=== PATIENT | female | born 1965 | race Caucasian/White ===

== ENCOUNTER 2020-04-28 13:29 | Emergency (ER) | payer OTHER, SELFPAY ==
[2020-04-28 13:30] VITALS: BP 112/86; PULSE 70; RESP 18; TEMP 36.4; BMI 42.4
--- NOTE | 2020-04-28 14:05 | ED.DCSUM_ITS ---
- ER Visit Summary Date of Service: 04/28/20 Chief Complaint: [Injury to left ankle] History of Present Illness: The patient is a 54 F [ presents to the emerge with injury to her left ankle that she sustained about an hour and a half ago. Patient states that she was getting out of her vehicle when she slipped in the mud and twisted the ankle. Patient is able to bear some weight but painful. She denies any other injuries.] Physical Examination: [HEENT-PERRLA, EOMI. Cranial nerves II through XII grossly intact. TMs clear. Mucous membranes moist. No adenopathy. Cardiovascular-regular rate and rhythm without murmur or ectopy Lungs-clear to auscultation, chest wall stable without crepitus or subcu emphysema Abdomen-normoactive bowel sounds, soft, nontender, no rebound or rigidity, no peritoneal signs. Extremities-intact ?4, normal range of motion, normal pulses. Left ankle- patient has diffuse soft tissue swelling over the lateral malleolus with tenderness to palpation. No pain at the proximal fibular head or base of the fifth metatarsal. She is neurovascular intact distally.] Test Results: [3 view x-ray of the left ankle obtained read by myself as distal fibula fracture minimally displaced. Radiology in agreement.] Emergency Department Course and Treatment: [Patient was placed in a posterior splint and given crutches] Treatment Plan: [Patient will be referred to orthopedics for follow-up. Patient given a prescription for Percocet for pain.] Disposition: [Discharged home in stable condition] Impression: [Left distal fibula fracture] This note was generated with [employer] dictation software. It may contain incorrect words, spelling, and punctuation that were not noted in review of the chart prior to signing
--- NOTE | 2020-04-28 14:08 | RAD_ITS ---
STUDY: X-RAY - LEFT ANKLE REASON FOR EXAM: Female, 54 years old. LEFT LATERAL ANKLE PAIN AND SWELLING S/P FALL TECHNIQUE: 3 view(s) of the ankle. COMPARISON: None. FINDINGS: Normal visualized distal tibia and fibula. Nondisplaced oblique fracture of the lateral malleolus. Mild asymmetry of the ankle mortise. Plantar spur. Well-defined small ossicles are seen overlying the posterior talus most likely from prior injury. The visualized subtalar, talonavicular, calcaneocuboid and tarsal articulations are normal. Diffuse lateral soft tissue swelling RAD/Ankle min 3 Views IMPRESSION: Acute nondisplaced oblique fracture of the lateral malleolus with diffuse lateral soft tissue swelling. Mild asymmetry of the ankle mortise. Electronically Signed: Eliel Mitchell, at 14:18 EST , Service support ,
--- NOTE | 2020-04-28 14:41 | ED.DEP ---
ED Disposition - Plan for ED Patient: Instructions: ED Ankle Fracture, Distal Fibula Prescriptions: Oxycodone HCl/Acetaminophen [Percocet 5/325] 1 tab PO Q6H PRN PRN 5 Days #20 tab PRN Reason: Pain Score 6-10 Prescription Printed Referrals: Kev Maria MD [STAFF PHYSICIAN] - 3-5 Days
[2020-04-28 15:30] VITALS: PULSE 81; RESP 16; O2SAT 100
--- NOTE | 2020-04-28 15:30 | ED.RN ---
THIS NURSE REVIEWED D/C INSTRUCTIONS WITH PT. PT VERBALIZED UNDERSTANDING OF INSTRUCTIONS. PT ASSISTED TO VEHICLE VIA W/C. PT DENIES FURTHER NEEDS OR QUESTIONS.
== END 2020-04-28 15:31 | disposition home or self-care (01) ==
LOC: ED 14:33
PROVIDERS: Emergency Provider Emergency Medicine; PCP Family Medicine
DX: S82.65XA Nondisplaced fracture of lateral malleolus of left fibula, initial encounter for closed fracture (principal); V48.4XXA Person boarding or alighting a car injured in noncollision transport accident, initial encounter; Y93.9 Activity, unspecified; Y92.818 Other transport vehicle as the place of occurrence of the external cause; Y99.9 Unspecified external cause status; I10 Essential (primary) hypertension
CPT/HCPCS: 29515; 73610; 99283

== ENCOUNTER 2021-02-13 07:30 | Inpatient (IN) | payer OTHER, SELFPAY ==
[2021-02-13 07:30] VITALS: BP 155/74; PULSE 78; RESP 16; TEMP 35.7; O2SAT 100; BMI 40.4
--- NOTE | 2021-02-13 07:53 | US_ITS ---
STUDY: ABDOMINAL ULTRASOUND - RIGHT UPPER QUADRANT REASON FOR VISIT: Female, 55 years old abdominal pain. TECHNIQUE: Ultrasound evaluation of the right upper quadrant was performed with real-time and static arreola-scale imaging. TECHNICAL QUALITY: Limited. Examination limited due to obesity. COMPARISON: None. FINDINGS: Liver: The liver measures 16.8 cm. There is increased echogenicity consistent with fatty infiltration. The bile ducts are within normal limits. There is hepatic color flow. The direction of portal flow is hepatopetal. There is no demonstrated mass lesion. Gallbladder: Normal distended gallbladder. The gallbladder wall measures 2.7 mm. There is a positive sonographic Boyer''s sign. There is mild degree of pericholecystic fluid. Sludge is seen in the gallbladder lumen. Common Bile Duct (C.B.D.): The common bile duct measures 5.9 mm. Pancreas: Normal size of the head, body and tail of the pancreas. There is increased echogenicity of the pancreas. There is no demonstrated pancreatic mass or cyst. Right Kidney: Normal size of the right kidney. The right kidney measures 10.5 cm x 5.3 cm x 4.5 cm. Normal renal cortex. The right cortex measures 1.5 cm. There is no demonstrated renal mass or cyst. There is no right hydronephrosis. US/Gallbladder IMPRESSION: Fatty infiltration of the liver. Small amount of sludge is seen within the gallbladder lumen. Positive Boyer''s sign. Tiny amount of pericholecystic fluid. Correlation with nuclear medicine hepatobiliary scan is recommended. Electronically Signed: Eliel Mitchell MD at 9:43 EDT , Service support ,
--- NOTE | 2021-02-13 07:53 | EDS_ITS ---
HPI HPI - GI History of Present Illness Chief Complaint: Abd Pain Detail of Chief Complaint: Abdominal pain that started 3 days ago Informant: patient Abdominal Pain/Flank Pain Current Severity: 10/21 Narrative Narrative: Patient presents to the emergency department with complaint of abdominal pain that started 3 days ago. Initially the pain was right upper quadrant and lasted about 4 5 hours and then seemed to resolve. She did not have any discomfort yesterday but developed discomfort again last evening. Patient had some GERD symptoms so she took some antiacid medicine and seemed to help her discomfort. Currently rates her pain a 7 out of 10. Food does not seem to affect the pain. She has had no fever. She denies urinary symptoms. She denies chest pain or shortness of breath. She denies any change in stool pattern or color. She denies blood in her stool or black tarry stool. Prior similar symptoms: Yes PFSH PFSH Allergy/AdvReac Type Severity Reaction Status Date / Time erythromycin base Allergy Nausea/Vom/ Verified 02/13/21 07:33 Diarrhea Social History (Updated 12/29/18 @ 15:12 by Anupam WADE, MAURO) Smoking Status: Never smoker ROS ROS ED Constitutional Constitutional ED: Reports systems reviewed and no addt'l complaints, except as documented; Denies body ache(s), change in weight or chills Eyes Eyes: Denies acute decrease in peripheral vision, change in vision, double vision or loss of vision ENT ENT ED: Reports none; Denies ear pain, lip swelling, loss taste/smell, neck pain, otalgia or sore throat Cardiovascular Cardiovascular: Reports none; Denies abdominal pain, chest pain with activity, leg edema, lightheadedness, palpitations, rapid heart rate or syncope Respiratory/Chest Respiratory/Chest: Reports none; Denies change in mental status, dry cough, dyspnea, hemoptysis, shortness of breath at rest or shortness of breath with exertion Gastrointestinal Gastrointestinal: Reports none and abdominal pain; Denies change in stool character, diarrhea, hematemesis, hematochezia, melena, rectal bleeding or vomiting Genitourinary Genitourinary ED: Reports none; Denies abdominal discomfort, anuria, dysuria, genital pain or polyuria Musculoskeletal Musculoskeletal: Reports none; Denies arthralgias, back pain, difficulty walking, extremity pain, muscle weakness or myalgias Integumentary Reports none; Denies abscess or rash Neurologic Neurologic: Reports none; Denies abnormal gait, confusion, focal weakness, frequent falls, headache(s), loss of vision, numbness, paresthesias, radicular pain, vertigo or weakness Psychiatric Psychiatric: Reports systems reviewed and no addt'l complaints, except as documented and none; Denies behavioral changes, confusion, difficulty concentrating, hallucinations, suicidal ideation, tactile hallucinations or visual hallucinations Endocrine Endocrinology: Denies none, cold intolerance, excessive sweating, fatigue or heat intolerance Hematologic/Lymphatic Hematologic/Lymphatic: Reports none; Denies anemia, easy bleeding or easy bruising Allergic/Immunologic Allergic/Immunologic ED: Denies as per HPI, none, lip swelling, mouth swelling, throat swelling, tongue swelling or hives EXAM Physical Exam Const Vital Signs: 02/13/21 07:30 02/13/21 10:00 Temperature 96.3 F L Temperature Source Temporal Pulse Rate 78 67 Respiratory Rate 16 Blood Pressure 155/74 H 149/68 H Blood Pressure Mean 101 95 Pulse Ox 100 Oxygen Delivery Method Room Air Positive well nourished and well developed General Appearance ED: well developed and NAD HEENT Reports TM's clear and moist mucous membranes normocephalic and atraumatic; Negative for trauma or tenderness Tympanic Membrane ED: Yes TM's clear Eyes PERRL and EOMs intact bilaterally General Eye ED: Negative for pale conjunctiva or scleral icterus Neck no lymphadenopathy, supple and no JVD General: Negative for tenderness Chest Wall inspection of chest normal and palpation of chest normal Chest: Negative for tenderness Resp normal respiratory effort and clear to auscultation bilaterally Effort and Inspection: Negative for respiratory distress or pain with movement Auscultation: Negative for rhonchi, wheezes or diminished lung sounds Cardio regular rate, regular rhythm, S1 normal heart sound, S2 normal heart sound and no murmurs Peripheral Pulses: pulses 2+ throughout GI normal to inspection, nondistended, normoactive bowel sounds, soft to palpation, non-distended and no masses GI Narrative: Patient has tenderness to palpation over the right upper quadrant with guarding. Positive Boyer sign. There is no rebound, rigidity, or peritoneal signs. Back/Spine no CVA tenderness and no thoracic nor lumbar tenderness Extremity normal to inspection General Extremety ED: Negative for edema General Extremity: Negative for edema Neuro oriented x3, CN's II-XII intact bilaterally, no sensory deficits noted and gait normal Sensorium / Orientation: awake, alert, oriented to person, oriented to place and oriented to time Motor Exam: strength 5/5 throughout and strength abnormal Psych mental status grossly normal Skin no rashes or lesions noted and no wounds MDM MDM MDM Narrative Medical decision making narrative: IV line established on arrival. Patient initially did not anything for pain as she wanted to be able to drive home if needed. Patient was noted to have an elevated white blood cell count and gallbladder sludge with some pericholecystic fluid and a positive Boyer sign. Clinically I suspect she likely has cholecystitis. Patient's pain became more severe and had to be medicated with Dilaudid and Zofran. I discussed case with surgeon on-call who will evaluate patient for admission for possible cholecystectomy. I was asked to start patient on Zosyn and order a Covid test which will be done. Lab Data Attestation: I reviewed the patient's lab results. Labs: Laboratory Results - last 24 hr 02/13/21 02/13/21 02/13/21 07:50 07:50 07:50 WBC 14.1 H RBC 4.40 Hgb 14.2 Hct 42.6 MCV 96.8 MCH 32.3 H MCHC 33.3 RDW Std Deviation 44.9 H RDW Coeff of Sergo 12.6 Plt Count 346 MPV 9.6 Immature Gran % (Auto) 0.400 Neut % (Auto) 80.0 H Lymph % (Auto) 10.3 L [place] % (Auto) 8.4 Eos % (Auto) 0.6 Baso % (Auto) 0.3 Absolute Neuts (auto) 11.3 H Absolute Lymphs (auto) 1.46 Nucleated RBC % 0 Sodium 136 Potassium 4.1 Chloride 107 Carbon Dioxide 26.0 Anion Gap 3 L BUN 11 Creatinine 0.75 Estim Creat Clear Calc 118.52 Est GFR (MDRD) Af Amer 102 Est GFR (MDRD) Non-Af 84 BUN/Creatinine Ratio 14.6 Glucose 159 H Lactic Acid Calcium 9.1 Total Bilirubin 0.50 AST 20 ALT 34 Alkaline Phosphatase 82 Total Protein 7.6 Albumin 3.4 Globulin 4.2 Albumin/Globulin Ratio 0.8 L Lipase 126 Urine Color Yellow Urine Clarity Clear Urine pH 7.0 Ur Specific [place] 1.015 Urine Protein 15 H Urine Glucose (UA) Normal Urine Ketones Negative Urine Occult Blood 25 H Urine Nitrite Negative Urine Bilirubin Negative Urine Urobilinogen Normal Ur Leukocyte Esterase 500 H Urine RBC 0 SEEN Urine WBC 10-25 SEEN Ur Squamous Epith Cells 0 SEEN Urine Bacteria 1+ Urine Mucus 0 SEEN 02/13/21 08:00 WBC RBC Hgb Hct MCV MCH MCHC RDW Std Deviation RDW Coeff of Sergo Plt Count MPV Immature Gran % (Auto) Neut % (Auto) Lymph % (Auto) [place] % (Auto) Eos % (Auto) Baso % (Auto) Absolute Neuts (auto) Absolute Lymphs (auto) Nucleated RBC % Sodium Potassium Chloride Carbon Dioxide Anion Gap BUN Creatinine Estim Creat Clear Calc Est GFR (MDRD) Af Amer Est GFR (MDRD) Non-Af BUN/Creatinine Ratio Glucose Lactic Acid 1.3 Calcium Total Bilirubin AST ALT Alkaline Phosphatase Total Protein Albumin Globulin Albumin/Globulin Ratio Lipase Urine Color Urine Clarity Urine pH Ur Specific [place] Urine Protein Urine Glucose (UA) Urine Ketones Urine Occult Blood Urine Nitrite Urine Bilirubin Urine Urobilinogen Ur Leukocyte Esterase Urine RBC Urine WBC Ur Squamous Epith Cells Urine Bacteria Urine Mucus Radiography Diagnostic Testing: Clinical Impression(s) from Imaging Studies Gallbladder Ultrasound 02/13/21 07:53 IMPRESSION: Fatty infiltration of the liver. Small amount of sludge is seen within the gallbladder lumen. Positive Boyer''s sign. Tiny amount of pericholecystic fluid. Correlation with nuclear medicine hepatobiliary scan is recommended. Electronically Signed: Eliel Mitchell MD at 9:43 EDT , Service support , Discharge Plan Triage Chief Complaint: Abd Pain ED Provider: Trisha Soliman Dx/Rx/DC Orders Clinical Impression: Abdominal pain, Acute cholecystitis Primary Care Provider: Karri Esquivel Referrals: Karri Esquivel MD [Primary Care Provider] - Disposition Disposition: Acute Care Hospital [facility]
[2021-02-13 08:03] LABS: Absolute Lymphocyte Count 1.46 X10^3/uL (0.83-4.51); Absolute Neutrophil Count 11.3 X10^3/uL (2.0-7.7); Basophil# 0.04 X10^3/uL; Basophil% 0.3 % (0-1); Eosinophil# 0.09 X10^3/uL; Eosinophils% 0.6 % (0-5); Hematocrit 42.6 % (37-47); Hemoglobin 14.2 g/dL (12.0-15.0); Lymphocyte # 1.46 X10^3/ul (0.83-4.51); Lymphocyte % 10.3 % (19-41); Mean Corp Hgb Conc 33.3 g/dL (32-36); Mean Corpuscular Hgb 32.3 pg (27.0-32.0); Mean Corpuscular Volume 96.8 fL (81-99); Mean Platelet Vol. 9.6 fl (6.2-12.0); Monocyte# 1.18 X10^3/uL; Monocyte% 8.4 % (0-10); Mucous, Urine 0 SEEN /hpf (<or=2+); NRBC Flagged by Analyzer 0 % (0-5); Neutrophil # 11.29 X10^3/uL (2.7-7.7); Platelet Count 346 K/mm3 (150-450); RBC Distribution Width CV 12.6 % (11.6-14.6); RBC Distribution Width SD 44.9 fl (35.1-43.9); Red Blood Cells-Urine 0 SEEN /hpf (0-5); Squamous Epithelial Cells - UA 0 SEEN /hpf (5-10); White Blood Count 14.1 K/mm3 (4.4-11.0)
[2021-02-13 08:07] LABS: Color, Urine Yellow (Yellow); Glucose, Dipstick Normal (Normal); Ketone-Dipstick Negative (Negative); Leukocyte Esterase-Dipstick 500 /ul (Negative); Nitrite-Dipstick Negative (Negative); Occult Blood-Urine 25 /ul (Negative); Protein-Dipstick 15 mg/dl (Negative); Specific Gravity, Urine 1.015 (1.002-1.030); Urine Bilirubin Dipstick Negative (Negative); Urine Clarity Clear (Clear); Urine Urobilinogen Normal (Normal)
[2021-02-13 08:15] LABS: Bacteria 1+ /hpf (None Seen); White Blood Cells 10-25 SEEN /hpf (0-5)
[2021-02-13 08:20] LABS: ALB/GLOB Ratio 0.8 RATIO (0.9-2.4); AST(SGOT) 20 U/L (15-37); Alanine Aminotransfer ALT/SGPT 34 U/L (13-56); Albumin, Serum 3.4 g/dL (3.2-5.0); Alkaline Phosphatase 82 U/L (45-117); Anion Gap 3 (5-15); BUN 11 mg/dL (7-18); BUN/Creat Ratio 14.6 RATIO (10-20); Calcium,Total 9.1 mg/dL (8.5-10.1); Chloride 107 mmol/L (98-107); Creatinine, Serum 0.75 mg/dL (0.55-1.02); EST Glomerular Filtration Rate 84 mL/min (>60); Est Glom Filt Rate - Afr Amer 102 mL/min (>60); Estimated Creatinine Clearance 118.52 ml/min; Globulin 4.2 g/dL (2.2-4.2); Glucose 159 mg/dL (74-106); Lipase 126 U/L (73-393); Potassium 4.1 mmol/L (3.5-5.1); Protein, Total 7.6 g/dL (6.4-8.2); Sodium Level 136 mmol/L (136-145)
[2021-02-13 08:34] LABS: Lactic Acid 1.3 mmol/L (0.4-1.9)
[2021-02-13] MEDS: 0.9% Normal Saline 1,000 ML 125 ML IV ×3 (08:55→22:03)
[2021-02-13 10:00] VITALS: BP 149/68; PULSE 67
[2021-02-13] MEDS: HYDROmorphone 1 MG/ML Syringe IV (10:28)
[2021-02-13] MEDS: Ondansetron 4 MG/2 ML Vial IV ×2 (10:28→22:02)
--- NOTE | 2021-02-13 10:50 | HP.PCM.SX_ITS ---
HPI - General General Date of Admission: 02/13/21 HPI Narrative MACIE CELAYA, is a 55 F who presents to the ER due to abdominal pain in the right upper quadrant and epigastric. Patient states it started Friday afternoon. Did get better on Friday however she did have some roast beef midday on Friday and pain got worse after and continued until today. Patient did have nausea is any vomiting. Ultrasound the gallbladder did show small mild pericholecystic fluid wall was measured at 2.7 mm and there was sludge seen in the gallbladder. Common bile duct was 6 mm. Patient white blood count is 14 she was given Zosyn IV in the ER. Normal LFTs. Patient did get some pain meds and now rates her pain at 2/10 initially when she came in it was a 01/21 [facility] Medical History (Updated 02/13/21 @ 10:41 by Consuelo Steen) Hypertension Home Medications acetaminophen [Tylenol Arthritis] 650 mg PO Q8H PRN 02/13/21 [History Last Taken Unknown] aspirin [Baby Aspirin] 81 mg PO DAILY 02/13/21 [History Last Taken 02/13/21] atenolol 50 mg PO DAILY 02/13/21 [History Last Taken Unknown] lisinopril 20 mg PO DAILY 02/13/21 [History Last Taken Unknown] Allergy/AdvReac Type Severity Reaction Status Date / Time erythromycin base Allergy Nausea/Vom/ Verified 02/13/21 07:33 Diarrhea Social History (Updated 12/29/18 @ 15:12 by Anupam WADE, MAURO) Smoking Status: Never smoker Vital Signs Vital Signs Vital Signs: 02/13/21 07:30 02/13/21 10:00 Temperature 96.3 F L Temperature Source Temporal Pulse Rate 78 67 Respiratory Rate 16 Blood Pressure 155/74 H 149/68 H Blood Pressure Mean 101 95 Pulse Ox 100 Oxygen Delivery Method Room Air Weight Weight: 200 lb Body Mass Index (BMI) 40.4 Physical Exam Const alert, oriented x3 and no apparent distress HEENT normocephalic and head/scalp atraumatic Resp normal respiratory effort Cardio regular rate GI soft to palpation; Negative for non-distended Palpation: tender epigastric and RUQ; Negative for guarding Extremity no clubbing, cyanosis or edema Neuro CN's II-XII intact bilaterally Psych mental status grossly normal Results Lab / Micro Data Result Diagrams: 02/13/21 07:50 02/13/21 07:50 Labs: Laboratory Results - last 24 hr 02/13/21 07:50: WBC 14.1 H, RBC 4.40, Hgb 14.2, Hct 42.6, MCV 96.8, MCH 32.3 H, MCHC 33.3, RDW Std Deviation 44.9 H, RDW Coeff of Sergo 12.6, Plt Count 346, MPV 9.6, Immature Gran % (Auto) 0.400, Neut % (Auto) 80.0 H, Lymph % (Auto) 10.3 L, [place] % (Auto) 8.4, Eos % (Auto) 0.6, Baso % (Auto) 0.3, Absolute Neuts (auto) 11.3 H, Absolute Lymphs (auto) 1.46, Nucleated RBC % 0 02/13/21 07:50: Sodium 136, Potassium 4.1, Chloride 107, Carbon Dioxide 26.0, Anion Gap 3 L, BUN 11, Creatinine 0.75, Estim Creat Clear Calc 118.52, Est GFR (MDRD) Af Amer 102, Est GFR (MDRD) Non-Af 84, BUN/Creatinine Ratio 14.6, Glucose 159 H, Calcium 9.1, Total Bilirubin 0.50, AST 20, ALT 34, Alkaline Phosphatase 82, Total Protein 7.6, Albumin 3.4, Globulin 4.2, Albumin/Globulin Ratio 0.8 L, Lipase 126 02/13/21 07:50: Urine Color Yellow, Urine Clarity Clear, Urine pH 7.0, Ur Specific [place] 1.015, Urine Protein 15 H, Urine Glucose (UA) Normal, Urine Ketones Negative, Urine Occult Blood 25 H, Urine Nitrite Negative, Urine Bilirubin Negative, Urine Urobilinogen Normal, Ur Leukocyte Esterase 500 H, Urine RBC 0 SEEN, Urine WBC 10-25 SEEN, Ur Squamous Epith Cells 0 SEEN, Urine Bacteria 1+, Urine Mucus 0 SEEN 02/13/21 08:00: Lactic Acid 1.3 Radiology Impression Gallbladder Ultrasound 02/13/21 07:53 IMPRESSION: Fatty infiltration of the liver. Small amount of sludge is seen within the gallbladder lumen. Positive Boyer''s sign. Tiny amount of pericholecystic fluid. Correlation with nuclear medicine hepatobiliary scan is recommended. Electronically Signed: Eliel Mitchell MD at 9:43 EDT , Service support , Assessment & Plan Assessment/Plan (1) Acute cholecystitis: PLAN: Reviewed the anatomy with the patient and discussed the procedure: laparoscopic cholecystectomy with possible cholangiograms, possible open. Review risks including but not limited to bleeding, infection, hernia, bile leak, re tained gallstones requiring another procedure ERCP- Endoscopic Retrograde Cholangiopancreatography, injury to another organ (bile ducts, common bile duct, small bowel, etc.) may require transfer to a tertiary care facility and conversion to an open procedure. All questions were answered. We will plan to do surgery tomorrow. We will keep her on clears today with Zosyn for antibiotics and check labs morning. Batsheva Winston M.D. Pager: [phone] [facility] [address] [place] [address], [address] [place] [address] Office: [phone] Procedure Criteria Type of Procedure Procedure Type: Elective Elective Risks - COVID COVID Risk Discussion: The surgeon/proceduralist and patient have discussed in detail the risk of exposure to and/or potential harm posed by the COVID-19 virus with having a surgery/procedure at this time versus the risk of delaying the surgery/procedure. It is not possible to know either the risk of delaying the surgery or procedure or chance of getting an infection with perfect accuracy, but a joint decision was made between the patient and the surgeon/proceduralist to proceed at this time with the scheduled surgery/procedure as indicated on the consent form.
[2021-02-13 10:54] VITALS: BP 134/66; PULSE 55; RESP 14; TEMP 36.6; O2SAT 96
--- NOTE | 2021-02-13 11:00 | PCS.PANDOC ---
PANDEMIC DOCUMENTATION INITIATED: Date: 11/27/2020 Time: 190
[2021-02-13 11:12] VITALS: BMI 43.2
[2021-02-13 11:15] VITALS: BP 143/71; PULSE 94; RESP 18; TEMP 36.9; O2SAT 98
[2021-02-13] MEDS: oxyCODONE 5 MG Tablet PO ×2 (11:55→17:11)
[2021-02-13] MEDS: Morphine 2 MG/ML Syringe IV ×3 (15:17→21:58)
[2021-02-13 17:00] VITALS: BP 133/76; PULSE 57; RESP 18; TEMP 36.6; O2SAT 97
[2021-02-13] MEDS: 0.9% Saline Lock 10 ML Syringe IV (19:38)
[2021-02-13 19:42] VITALS: BP 127/59; PULSE 69; RESP 18; TEMP 37.3; O2SAT 96
[2021-02-14] VITALS (14 sets, daily range): BP systolic 90–138; BP diastolic 45–73; PULSE 70–78; RESP 16–18; TEMP 36.1–37.6; O2SAT 91–98; BMI 43.2
[2021-02-14] MEDS: Morphine 2 MG/ML Syringe IV ×4 (01:21→19:15)
--- NOTE | 2021-02-14 03:15 | EKG12_ITS ---
Test Reason : PRE-OP Blood Pressure : / mmHG Vent. Rate : 078 BPM Atrial Rate : 078 BPM P-R Int : 150 ms QRS Dur : 080 ms QT Int : 378 ms P-R-T Axes : 039 003 001 degrees QTc Int : 430 ms Normal sinus rhythm Normal ECG Confirmed by KEANU PATE, BETO ([id number]), photograph editor MAT BRADSHAW ([id number]) on 02/20/2021 8:30:58 AM Referred By: SIOBHAN Confirmed By:BETO COLUNGA MD
[2021-02-14 05:19] LABS: Absolute Lymphocyte Count 1.24 X10^3/uL (0.83-4.51); Absolute Neutrophil Count 12.7 X10^3/uL (2.0-7.7); Basophil# 0.05 X10^3/uL; Basophil% 0.3 % (0-1); Eosinophil# 0.02 X10^3/uL; Eosinophils% 0.1 % (0-5); Hematocrit 38.7 % (37-47); Hemoglobin 12.6 g/dL (12.0-15.0); Lymphocyte # 1.24 X10^3/ul (0.83-4.51); Lymphocyte % 7.6 % (19-41); Mean Corp Hgb Conc 32.6 g/dL (32-36); Mean Corpuscular Hgb 32.3 pg (27.0-32.0); Mean Corpuscular Volume 99.2 fL (81-99); Mean Platelet Vol. 9.5 fl (6.2-12.0); Monocyte# 2.13 X10^3/uL; Monocyte% 13.1 % (0-10); NRBC Flagged by Analyzer 0 % (0-5); Neutrophil # 12.68 X10^3/uL (2.7-7.7); Neutrophil % 78.2 % (47-70); POSITIVE DIFFERENTIAL YES; Platelet Count 266 K/mm3 (150-450); RBC Distribution Width CV 12.9 % (11.6-14.6); RBC Distribution Width SD 46.9 fl (35.1-43.9); White Blood Count 16.2 K/mm3 (4.4-11.0)
[2021-02-14] MEDS: 0.9% Normal Saline 1,000 ML 125 ML IV ×3 (05:28→22:32)
[2021-02-14 05:32] LABS: Differential Indicated SCAN CRITERIA MET
[2021-02-14 05:50] LABS: AST(SGOT) 12 U/L (15-37); Alanine Aminotransfer ALT/SGPT 23 U/L (13-56); Albumin, Serum 2.4 g/dL (3.2-5.0); Alkaline Phosphatase 57 U/L (45-117); Anion Gap 5 (5-15); BUN 7 mg/dL (7-18); BUN/Creat Ratio 13.1 RATIO (10-20); Calcium,Total 7.6 mg/dL (8.5-10.1); Chloride 108 mmol/L (98-107); Creatinine, Serum 0.53 mg/dL (0.55-1.02); EST Glomerular Filtration Rate 125 mL/min (>60); Est Glom Filt Rate - Afr Amer 152 mL/min (>60); Estimated Creatinine Clearance 179.46 ml/min; Globulin 3.6 g/dL (2.2-4.2); Glucose 123 mg/dL (74-106); Potassium 3.9 mmol/L (3.5-5.1); Sodium Level 137 mmol/L (136-145)
--- NOTE | 2021-02-14 07:17 | PCM.PN.SRG ---
Subjective Subjective Patient still has right upper quadrant pain controlled with pain meds. Patient's white blood count did increase to 16 and she is on Zosyn for acute cholecystitis Objective Data Objective Data Vital Signs: Vital Signs Temp Pulse Resp BP Pulse Ox 99.6 F H 78 18 123/69 H 96 02/14/21 05:34 02/14/21 05:34 02/14/21 05:34 02/14/21 05:34 02/14/21 05:34 Oxygen Delivery Method Room Air Weight: 214 lb 0.008 oz Body Mass Index (BMI) 43.2 Intake & Output: Intake and Output for Last 24 Hours 02/12/21 02/13/21 02/14/21 23:59 23:59 23:59 Intake Total 1851.67 / 1851.67 927.08 / 927.08 Balance 1851.67 / 1851.67 927.08 / 927.08 Lab / Micro Data Result Diagrams: 02/14/21 04:54 02/14/21 04:54 Labs: Laboratory Results - last 24 hr 02/13/21 07:50: WBC 14.1 H, RBC 4.40, Hgb 14.2, Hct 42.6, MCV 96.8, MCH 32.3 H, MCHC 33.3, RDW Std Deviation 44.9 H, RDW Coeff of Sergo 12.6, Plt Count 346, MPV 9.6, Immature Gran % (Auto) 0.400, Neut % (Auto) 80.0 H, Lymph % (Auto) 10.3 L, [place] % (Auto) 8.4, Eos % (Auto) 0.6, Baso % (Auto) 0.3, Absolute Neuts (auto) 11.3 H, Absolute Lymphs (auto) 1.46, Nucleated RBC % 0 02/13/21 07:50: Sodium 136, Potassium 4.1, Chloride 107, Carbon Dioxide 26.0, Anion Gap 3 L, BUN 11, Creatinine 0.75, Estim Creat Clear Calc 118.52, Est GFR (MDRD) Af Amer 102, Est GFR (MDRD) Non-Af 84, BUN/Creatinine Ratio 14.6, Glucose 159 H, Calcium 9.1, Total Bilirubin 0.50, AST 20, ALT 34, Alkaline Phosphatase 82, Total Protein 7.6, Albumin 3.4, Globulin 4.2, Albumin/Globulin Ratio 0.8 L, Lipase 126 02/13/21 07:50: Urine Color Yellow, Urine Clarity Clear, Urine pH 7.0, Ur Specific [place] 1.015, Urine Protein 15 H, Urine Glucose (UA) Normal, Urine Ketones Negative, Urine Occult Blood 25 H, Urine Nitrite Negative, Urine Bilirubin Negative, Urine Urobilinogen Normal, Ur Leukocyte Esterase 500 H, Urine RBC 0 SEEN, Urine WBC 10-25 SEEN, Ur Squamous Epith Cells 0 SEEN, Urine Bacteria 1+, Urine Mucus 0 SEEN 02/13/21 08:00: Lactic Acid 1.3 02/14/21 04:54: WBC 16.2 H, RBC 3.90 L, Hgb 12.6, Hct 38.7, MCV 99.2 H, MCH 32.3 H, MCHC 32.6, RDW Std Deviation 46.9 H, RDW Coeff of Sergo 12.9, Plt Count 266, MPV 9.5, Immature Gran % (Auto) 0.700, Neut % (Auto) 78.2 H, Lymph % (Auto) 7.6 L, [place] % (Auto) 13.1 H, Eos % (Auto) 0.1, Baso % (Auto) 0.3, Absolute Neuts (auto) 12.7 H, Absolute Lymphs (auto) 1.24, Nucleated RBC % 0, Diff Path Review August02/14/21 04:54: Sodium 137, Potassium 3.9, Chloride 108 H, Carbon Dioxide 24.0, Anion Gap 5, BUN 7, Creatinine 0.53 L, Estim Creat Clear Calc 179.46, Est GFR (MDRD) Af Amer 152, Est GFR (MDRD) Non-Af 125, BUN/Creatinine Ratio 13.1, Glucose 123 H, Calcium 7.6 L, Total Bilirubin 0.80, Direct Bilirubin 0.30, AST 12 L, ALT 23, Alkaline Phosphatase 57, Total Protein 6.0 L, Albumin 2.4 L, Globulin 3.6 Micro: Microbiology 02/14/21 01:30 Nasal Secretion SARS-CoV-2 Antigen (Rapid) - Final Radiography Diagnostic Testing: Radiology Impression Gallbladder Ultrasound 02/13/21 07:53 IMPRESSION: Fatty infiltration of the liver. Small amount of sludge is seen within the gallbladder lumen. Positive Boyer''s sign. Tiny amount of pericholecystic fluid. Correlation with nuclear medicine hepatobiliary scan is recommended. Electronically Signed: Eliel Mitchell MD at 9:43 EDT , Service support , Physical Exam Const alert, oriented x3 and no apparent distress HEENT normocephalic and head/scalp atraumatic Resp normal respiratory effort Cardio regular rate GI soft to palpation; Negative for non-distended Palpation: tender epigastric and RUQ; Negative for guarding Extremity no clubbing, cyanosis or edema Neuro CN's II-XII intact bilaterally Psych mental status grossly normal Assessment & Plan Assessment/Plan (1) Acute cholecystitis: PLAN: Plan for laparoscopic cholecystectomy today. Patient no further question this time. Batsheva Winston M.D. Pager: [phone] [facility] [address] [place] [address], [facility], [address] [place] [address] Office: [phone]
[2021-02-14] MEDS: Atenolol 50 MG Tablet PO (09:45)
[2021-02-14] MEDS: Lisinopril 20 MG Tablet PO (09:45)
[2021-02-14] MEDS: Piperacil/Tazobactam 3.375 GM/50 ML ML IV ×2 (10:20→22:32)
--- NOTE | 2021-02-14 13:15 | GALL_PTH ---
PATIENT: MACIE CELAYA LOC: MS2 U#:[id number] AGE/SX: 55/F [place] [facility] [place]/15/[address]: Dr. Batsheva Winston MD : [id number] BED: 1 DIS: 02/16/2021 SPEC #: [id number] RECD: 02/15/21 07:57 STATUS: MIGUEL ANGEL REJohanne #: [id number] AMENA: 02/14/21 13:[address]: Batsheva Winston DEPT: SURGICAL PATHOLOGY RECD BY: Bernarda Lane ENTERED: 02/15/21 09:26 SP TYPE: MEG VALDIVIA DR: Dr. Karri Esquivel MD Tissues: Gallbladder, NOS Procedures: Surgery Specimen Level III HEADER OPERATION: Laparoscopic cholecystectomy with IOC PRE-OP DIAGNOSIS: Acute cholecystitis TISSUE SUBMITTED: Gallbladder MICROSCOPIC DIAGNOSIS Gallbladder, cholecystectomy: Acute and chronic cholecystitis. AM:lauryn 02/16/2021 MICROSCOPIC DESCRIPTION Slides are reviewed. GROSS DESCRIPTION Received is one container labeled with the patient's name and designated gallbladder. The specimen consists of a previously opened gallbladder consisting only of a portion of the gallbladder. The cystic duct is not identified. The gallbladder measures 5 cm in length and up to 3 cm in diameter. The serosal surface is aguilar, glistening. The mucosa is ulcerated, congested and hemorrhagic. The gallbladder contains hemorrhagic bile and blood clot. No stones are identified in the container or in the gallbladder. No mass lesion is identified. The gallbladder wall measures up to 0.5 cm in thickness. Batt Packer sections are submitted in one cassette. / SJ:rg 02/15/21 TC:2 CPT: 26830
--- NOTE | 2021-02-14 14:48 | PCM.OPRPT ---
Report of Operation Date of Procedure: 02/14/21 Pre-Operative Diagnosis: Acute cholecystitis Post-Operative Diagnosis: Same Surgery/Procedure Performed:: Laparoscopic subtotal cholecystectomy Surgeon: Batsheva Winston Type of Anesthesia: General/Supplemental Anesthesiologist: Pete Melissa Special Medications: Zosyn 3.375 g IV every 8 hours for acute cholecystitis Specimen's removed: Gallbladder wall Estimated Blood Loss (mL): 50 cc Fluids Replaced: Per anesthesia Description of Procedure: Indications this is a 55 year-old female who developed abdominal pain/nausea/vomiting and on workup was found to have cholelithiasis, acute cholecystitis with a normal common bile duct. Laparoscopic cholecystectomy was elected. Description procedure: The patient was placed on operating table in supine position. General Anesthesia was induced. A timeout was completed verifying correct patient, procedure, site, position and special equipment prior to beginning procedure. The abdomen was prepped and draped in usual sterile fashion. An incision was made in the natural skin line above the umbilicus. The fascia was elevated and incised. The peritoneum was elevated and incised. Entry into the peritoneum was confirmed visually and no bowel was noted in the vicinity of the incision. Crystal trocar was placed. The abdomen was insufflated with carbon dioxide to a pressure of 12-15 mmHg. Patient tolerated insufflation well. The laparoscope was then inserted and abdomen inspected. No injuries from initial trocar placement were noted. Additional trochars were then inserted in the following locations 5 mm trocar in the epigastrium and 2 more 5 mm trochars along the right costal margin. The abdomen was inspected no abnormalities were found. The table is placed in reverse Trendelenburg position with the right side up. There was some limited visualization due to body habitus as well as inflamed omentum in the area. An additional 5 mm right upper quadrant trocar site was placed for retraction. The adhesions between the gallbladder and omentum were lysed sharply and with the harmonic. Gallbladder is noted to be very tense the needle aspirator was used in order to grasp the dome of the gallbladder. There were very dense adhesions at the level of the neck of the gallbladder, due to this decided to do a subtotal cholecystectomy. Harmonic was used to divide the wall anteriorly in an area of safety. Argon beam was used on the mucosa of the gallbladder. Small sludge was suctioned. No stones were seen. No bile was seen at the neck of the gallbladder. 15 [place] Islander TEGAN round drain was also placed. Hemostasis was checked and the gallbladder wall was removed using the endoscopic retrieval bag through the umbilical port. The gallbladder wall is passed off table as specimen. The gallbladder fossa was copiously irrigated with saline and hemostasis obtained, Som was also placed in the gallbladder fossa. There is no evidence of bleeding from the gallbladder fossa or cystic artery leakage of bile from the cystic duct stump. The fascia of the 12 mm trocar was closed with a [id number] 1 PDS suture using the Holden Benítez needle. Secondary trochars removed under direct vision. No bleeding was noted the trocar sites. The laparoscope was withdrawn and umbilical trocar removed. The abdomen was allowed to collapse. The skin was closed with sutures of 4-0 Monocryl and Steri-Strips. The orogastric tube was removed and the patient was extubated. The patient tolerated procedure well and was taken to the postanesthesia care unit in stable condition. Complications none
[2021-02-14] MEDS: Bupivacaine Mpf 0.5% 30 ML VIAL (14:50)
[2021-02-14] MEDS: Ondansetron 4 MG/2 ML Vial IV (22:39)
[2021-02-14] MEDS: 0.9% Saline Lock 10 ML Syringe IV (22:39)
[2021-02-15] VITALS (7 sets, daily range): BP systolic 95–110; BP diastolic 40–55; PULSE 68–87; RESP 16–20; TEMP 36.4–38.2; O2SAT 91–98
[2021-02-15] MEDS: oxyCODONE 5 MG Tablet PO ×5 (01:07→20:26)
[2021-02-15] MEDS: Piperacil/Tazobactam 3.375 GM/50 ML ML IV ×3 (05:36→21:21)
[2021-02-15 06:07] LABS: Absolute Lymphocyte Count 1.76 X10^3/uL (0.83-4.51); Absolute Neutrophil Count 12.9 X10^3/uL (2.0-7.7); Basophil# 0.02 X10^3/uL; Basophil% 0.1 % (0-1); Eosinophil# 0.02 X10^3/uL; Eosinophils% 0.1 % (0-5); Hemoglobin 11.6 g/dL (12.0-15.0); Lymphocyte # 1.76 X10^3/ul (0.83-4.51); Lymphocyte % 10.5 % (19-41); Mean Corp Hgb Conc 32.2 g/dL (32-36); Mean Corpuscular Hgb 32.8 pg (27.0-32.0); Mean Corpuscular Volume 101.7 fL (81-99); Mean Platelet Vol. 9.4 fl (6.2-12.0); Monocyte# 1.99 X10^3/uL; Monocyte% 11.9 % (0-10); NRBC Flagged by Analyzer 0 % (0-5); Neutrophil # 12.85 X10^3/uL (2.7-7.7); Neutrophil % 76.8 % (47-70); POSITIVE DIFFERENTIAL YES; Platelet Count 290 K/mm3 (150-450); RBC Distribution Width CV 13.1 % (11.6-14.6); RBC Distribution Width SD 49.5 fl (35.1-43.9); Red Blood Count 3.54 M/mm3 (4.2-5.4); White Blood Count 16.7 K/mm3 (4.4-11.0)
[2021-02-15] MEDS: 0.9% Normal Saline 1,000 ML 125 ML IV (06:38)
[2021-02-15 06:43] LABS: Differential Indicated SCAN CRITERIA MET
[2021-02-15 06:50] LABS: AST(SGOT) 19 U/L (15-37); Alanine Aminotransfer ALT/SGPT 26 U/L (13-56); Albumin, Serum 2.4 g/dL (3.2-5.0); Alkaline Phosphatase 62 U/L (45-117); Anion Gap 4 (5-15); BUN 9 mg/dL (7-18); BUN/Creat Ratio 11.6 RATIO (10-20); Bilirubin, Direct 0.32 mg/dL (0.00-0.30); Calcium,Total 8.5 mg/dL (8.5-10.1); Chloride 108 mmol/L (98-107); Creatinine, Serum 0.78 mg/dL (0.55-1.02); EST Glomerular Filtration Rate 81 mL/min (>60); Est Glom Filt Rate - Afr Amer 98 mL/min (>60); Estimated Creatinine Clearance 121.85 ml/min; Globulin 3.8 g/dL (2.2-4.2); Glucose 104 mg/dL (74-106); Potassium 3.9 mmol/L (3.5-5.1); Protein, Total 6.2 g/dL (6.4-8.2); Sodium Level 137 mmol/L (136-145)
--- NOTE | 2021-02-15 08:06 | PCM.PN.SRG ---
Subjective Subjective Patient's TEGAN is serosanguineous. Patient's pain is improved from surgery now just incisional. Objective Data Objective Data Vital Signs: Vital Signs Temp Pulse Resp BP Pulse Ox 97.6 F L 72 16 99/47 L 98 02/15/21 05:30 02/15/21 05:30 02/15/21 05:30 02/15/21 05:30 02/15/21 05:30 Oxygen Flow Rate (L/min) 2 Oxygen Delivery Method Nasal Cannula Weight: 213 lb 13.574 oz Body Mass Index (BMI) 43.2 Intake & Output: Intake and Output for Last 24 Hours 02/13/21 02/14/21 02/15/21 23:59 23:59 23:59 Intake Total 1851.67 / 1851.67 2867.91 / 2867.91 1416.67 / 1416.67 Output Total 145 / 145 Balance 1851.67 / 1851.67 2722.91 / 2722.91 1386.67 / 1386.67 Lab / Micro Data Result Diagrams: 02/15/21 05:55 02/15/21 05:55 Labs: Laboratory Results - last 24 hr 02/15/21 05:55: WBC 16.7 H, RBC 3.54 L, Hgb 11.6 L, Hct 36.0 L, MCV 101.7 H, MCH 32.8 H, MCHC 32.2, RDW Std Deviation 49.5 H, RDW Coeff of Sergo 13.1, Plt Count 290, MPV 9.4, Immature Gran % (Auto) 0.600, Neut % (Auto) 76.8 H, Lymph % (Auto) 10.5 L, [place] % (Auto) 11.9 H, Eos % (Auto) 0.1, Baso % (Auto) 0.1, Absolute Neuts (auto) 12.9 H, Absolute Lymphs (auto) 1.76, Nucleated RBC % 0, Diff Path Review August02/15/21 05:55: Sodium 137, Potassium 3.9, Chloride 108 H, Carbon Dioxide 25.0, Anion Gap 4 L, BUN 9, Creatinine 0.78, Estim Creat Clear Calc 121.85, Est GFR (MDRD) Af Amer 98, Est GFR (MDRD) Non-Af 81, BUN/Creatinine Ratio 11.6, Glucose 104, Calcium 8.5, Total Bilirubin 0.80, Direct Bilirubin 0.32 H, AST 19, ALT 26, Alkaline Phosphatase 62, Total Protein 6.2 L, Albumin 2.4 L, Globulin 3.8 Micro: Microbiology 02/14/21 01:30 Nasal Secretion SARS-CoV-2 Antigen (Rapid) - Final Physical Exam Resp normal respiratory effort Cardio regular rate GI GI Narrative: Abdomen: Soft, nondistended, tender near incision's dressed clean dry and intact, no peritoneal signs, TEGAN serosanguineous Assessment & Plan Assessment/Plan (1) S/P laparoscopic cholecystectomy: (2) Acute cholecystitis: PLAN: We will continue IV antibiotics okay for regular diet. We will continue to monitor drain output currently serosanguineous did discuss with patient that if it did become bilious patient could need an ERCP but at the time of surgery cystic duct seem to be ablated due to inflammation as no bile was seen. Batsheva Winston M.D. Pager: [phone] [facility] [address] [place] [address] [address] [place] [address] Office: [phone]
--- NOTE | 2021-02-15 11:01 | CHAPLAIN ---
Type of Pastoral Visit _x__ Initial Visit ___ Follow-up Visit ___ On-call Visit ___ General Patient Visit ___ Spiritual Assessment ___ Family Conference ___ Bereavement ___ Rapid Response ___ Code Blue ___ Other (describe below) Pastoral Care Referral From _x__ Patient ___ Family ___ Nurse ___ Physician ___ Scholastic Aptitude Test Grader ___ Plisse Machine Operator Helper ___ Other (describe below) Sacrament/Intervention _x__ Active listening ___ Anointing ___ Lutheran ___ Bereavement ___ Communion _x__ Brisa exploration ___ ___ Life review _x__ Prayer ___ Reconciliation ___ Sacrament of Sick _x__ Supportive presence ___ Wedding ___ Other (describe below) Pastoral Comments patient was a little tearful and explained that she was disappointed about needing to stay longer in the hospital; pt has family support; when asked about spiritual support the pt said she is not currently involved with a voodoo but expresses her desire to find a new voodoo; pt welcomes visit and prayer
--- NOTE | 2021-02-15 16:00 | CASEMGMT ---
RN CM CLINICAL NURSE SPECIALIST CM to room to meet with patient for initial transition planning/care coordination assessment. RN BIANCA introduced self and role at [facility]. Pt voices understanding and consents to assessment at this time. Pt resting in bed in no distress at this time. @ bedside. Pt is A/O at this time and answers all questions appropriately. Care providers, pharmacy, and demographics verified/updated at this time. PCP: Dr Esquivel Specialists: None Preferred Pharmacy: [facility] Insurance: [facility] Living Will/HPOA: Pt does not currently have LW/HCPOA and declines info at this time. Pt made aware that she can contact SW as an out-pt and make appt in the future if she decides she would like to talk with someone about this or would like to utilize [facility] social work for advanced directive completion. LNOK: , [place] Living Arrangements: Lives w/ in one-story home w/no steps to enter. Independent. Transportation: Pt states drives self and states no transportation concerns at this time. also drives DME: Denies using any DME and denies needs. HHC/SNF: No hx of either and denies needs. Pt wishes to return home and states has no concerns with going home at time of discharge. CM to follow for any discharge planning/needs. Pt voices no concerns/needs at this time. Advised pt to ask for CM if any questions/concerns/needs arise. Voices understanding. PLAN: Home w/spousal support and discharge plans in place. Gm SALINAS RN, CM
[2021-02-16] MEDS: oxyCODONE 5 MG Tablet PO ×2 (00:52→09:18)
[2021-02-16 02:35] VITALS: BP 124/51; PULSE 84; RESP 18; TEMP 36.9; O2SAT 92
[2021-02-16] MEDS: Piperacil/Tazobactam 3.375 GM/50 ML ML IV (05:15)
[2021-02-16 05:43] LABS: Absolute Lymphocyte Count 1.94 X10^3/uL (0.83-4.51); Absolute Neutrophil Count 8.1 X10^3/uL (2.0-7.7); Basophil# 0.03 X10^3/uL; Basophil% 0.3 % (0-1); Eosinophil# 0.16 X10^3/uL; Eosinophils% 1.4 % (0-5); Hematocrit 34.7 % (37-47); Hemoglobin 11.4 g/dL (12.0-15.0); Lymphocyte # 1.94 X10^3/ul (0.83-4.51); Lymphocyte % 16.8 % (19-41); Mean Corp Hgb Conc 32.9 g/dL (32-36); Mean Corpuscular Hgb 32.5 pg (27.0-32.0); Mean Corpuscular Volume 98.9 fL (81-99); Mean Platelet Vol. 9.4 fl (6.2-12.0); Monocyte# 1.27 X10^3/uL; NRBC Flagged by Analyzer 0 % (0-5); Neutrophil # 8.07 X10^3/uL (2.7-7.7); Neutrophil % 70.1 % (47-70); Platelet Count 289 K/mm3 (150-450); RBC Distribution Width CV 13.2 % (11.6-14.6); RBC Distribution Width SD 47.8 fl (35.1-43.9); Red Blood Count 3.51 M/mm3 (4.2-5.4); White Blood Count 11.5 K/mm3 (4.4-11.0)
--- NOTE | 2021-02-16 07:23 | PN.SURG_ITS ---
Subjective Subjective Patient states pain has improved still controlled with pain meds, TEGAN serous Objective Data Objective Data Vital Signs: Vital Signs Temp Pulse Resp BP Pulse Ox 98.5 F 84 18 124/51 H 92 02/16/21 02:35 02/16/21 02:35 02/16/21 02:35 02/16/21 02:35 02/16/21 02:35 Oxygen Flow Rate (L/min) 2 Oxygen Delivery Method Room Air Weight: 213 lb 13.574 oz Body Mass Index (BMI) 43.2 Intake & Output: Intake and Output for Last 24 Hours 02/14/21 02/15/21 02/16/21 23:59 23:59 23:59 Intake Total 2867.91 / 2867.91 3106.67 / 3506.67 690 / 690 Output Total 145 / 145 73 / 73 Balance 2722.91 / 2722.91 3033.67 / 3433.67 670 / 670 Lab / Micro Data Result Diagrams: 02/16/21 05:22 02/15/21 05:55 Labs: Laboratory Results - last 24 hr 02/16/21 05:22: WBC 11.5 H, RBC 3.51 L, Hgb 11.4 L, Hct 34.7 L, MCV 98.9, MCH 32.5 H, MCHC 32.9, RDW Std Deviation 47.8 H, RDW Coeff of Sergo 13.2, Plt Count 289, MPV 9.4, Immature Gran % (Auto) 0.400, Neut % (Auto) 70.1 H, Lymph % (Auto) 16.8 L, [place] % (Auto) 11.0 H, Eos % (Auto) 1.4, Baso % (Auto) 0.3, Absolute Neuts (auto) 8.1 H, Absolute Lymphs (auto) 1.94, Nucleated RBC % 0 Micro: Microbiology 02/14/21 01:30 Nasal Secretion SARS-CoV-2 Antigen (Rapid) - Final Physical Exam Resp normal respiratory effort Cardio regular rate GI GI Narrative: Abdomen: Soft, nondistended, tender near incision's dressed clean dry and intact, no peritoneal signs, TEGAN serous Assessment & Plan Assessment/Plan (1) S/P laparoscopic cholecystectomy: (2) Acute cholecystitis: PLAN: Postop day two laparoscopic subtotal cholecystectomy We will continue IV antibiotics, tolerating regular diet regular diet. We will likely plan to remove TEGAN later this morning if still remains serous. Would DC patient with p.o. antibiotics. Batsheva Winston M.D. Pager: [phone] [facility] [address] [place] [address], [address] [place] [id number] Office: [phone]
--- NOTE | 2021-02-16 09:00 | EX.PCM.DISCH ---
Discharge Instructions Diet Discharge Diet: Light diet - advance as tolerated Activity Discharge Activity: May Not Drive (while taking narcotic pain medications.) May shower in (days): 1 Lifting Restrictions: no lifting >20 lbs x 2 wks, no strenuous exercise for 4 wks Dressing / Incision Call your doctor if your incision/area has: Continuous Slow Oozing, Sudden Increased Bleeding, Increased Pain/ Swelling, Increased Redness, Foul Smelling Discharge and Swelling at the incision site Call your doctor if you observe: Fever of 101 or Higher Remove Dressing in: 2 days Cleanse incision/area with: Soap & Water Additional Dressing/Incision Instructions:: Steri-Strips will fall off in 7 to 10 days, if they do not fall off okay to remove after 10 days. Follow Up Care Please Follow Up With: Batsheva Winston MD When: Call the office for a follow-up appointment 2 weeks; after 5 PM and on the weekends call [phone] with any concerns. Test Results: Test results from this visit will be discussed in further detail at your follow-up appointment, if applicable. Discharge Plan Admission Admit Date/Time: 02/15/21 14:48 Attending Provider: Batsheva Winston Primary Care Provider: Karri Esquivel Discharge Orders/Prescriptions Prescriptions: New amoxicillin-pot clavulanate [Augmentin] 875-125 mg tablet 1 tab PO BID Qty: 6 RF: 0 oxycodone-acetaminophen 5-325 mg tablet 1 - 2 tab PO Q6H PRN (Reason: pain) 4 Days Qty: 20 RF: 0 Continued atenolol 50 mg tablet 50 mg PO DAILY RF: 0 lisinopril 20 mg tablet 20 mg PO DAILY RF: 0 acetaminophen [Tylenol Arthritis] 650 mg Tablet Extended Release 650 mg PO Q8H PRN (Reason: arthritis pain) RF: 0 Held aspirin [Baby Aspirin] 81 mg Tablet,Chewable 81 mg PO DAILY RF: 0 Referrals / Follow Up: Karri Esquivel MD [Primary Care Provider] - Disposition Disposition (needs filled in before D/C Order can be placed): Home, Self Care
[2021-02-16 09:15] VITALS: BP 113/62; PULSE 83; RESP 14; TEMP 37.1; O2SAT 94
[2021-02-16 09:15] LABS: Pathologist Review Reviewed
[2021-02-16] MEDS: Atenolol 50 MG Tablet PO (09:19)
[2021-02-16] MEDS: Lisinopril 20 MG Tablet PO (09:19)
[2021-02-16 09:39] LABS: Pathologist Review Reviewed
--- NOTE | 2021-02-16 18:15 | DS.PCM_ITS ---
Providers Date of Admission: 02/15/21 Primary Care Physician: Dr. Karri Esquivel MD Reason For Visit: ABDOMINAL PAIN, CHOLECYSTITIS Diagnosis Discharge Diagnosis (1) S/P laparoscopic cholecystectomy: Status: Acute Code(s): Z90.49 - Acquired absence of other specified parts of digestive tract (2) Acute cholecystitis: Status: Acute Code(s): K81.0 - Acute cholecystitis Medications at Discharge Home Medications acetaminophen [Tylenol Arthritis] 650 mg PO Q8H PRN 02/13/21 aspirin [Baby Aspirin] 81 mg PO DAILY 02/13/21 atenolol 50 mg PO DAILY 02/13/21 lisinopril 20 mg PO DAILY 02/13/21 amoxicillin-pot clavulanate [Augmentin] 1 tab PO BID #6 tab 02/16/21 oxycodone-acetaminophen 1 - 2 tab PO Q6H PRN 4 Days #20 tab 02/16/21 Hospital Course Operations cholecystecomy (lap subtotal cholecystectomy 02/15/21) Summary of Care Provided Minutes Spent on Discharge: 15 Hospital Course: Pt was admitted for acute cholecystitis and when for a lap subtotal cholecystectomy with TEGAN placement due to increased inflammation and dense adhesions. Pt was kept on zosyn IV while in the hospital- angelic regular diet POD1 and drain remained serosanguineous and was remove late AM POD 2. Pt pain was improving as well & previous pain from before surgery was resolved. Pt was d/c w PO augmentin. Weight / BMI Weight Weight: 213 lb 13.574 oz Body Mass Index (BMI) 43.2 ABG / Lab / Microbiology Data Result Diagrams: 02/16/21 05:22 02/15/21 05:55 Laboratory: Laboratory Results - last 24 hr 02/14/21 04:54: Diff Path Review Reviewed 02/15/21 05:55: Diff Path Review Reviewed 02/16/21 05:22: WBC 11.5 H, RBC 3.51 L, Hgb 11.4 L, Hct 34.7 L, MCV 98.9, MCH 32.5 H, MCHC 32.9, RDW Std Deviation 47.8 H, RDW Coeff of Sergo 13.2, Plt Count 289, MPV 9.4, Immature Gran % (Auto) 0.400, Neut % (Auto) 70.1 H, Lymph % (Auto) 16.8 L, [place] % (Auto) 11.0 H, Eos % (Auto) 1.4, Baso % (Auto) 0.3, Absolute Neuts (auto) 8.1 H, Absolute Lymphs (auto) 1.94, Nucleated RBC % 0 Microbiology: Microbiology 02/14/21 01:30 Nasal Secretion SARS-CoV-2 Antigen (Rapid) - Final D/C Instructions Discharge Diet: Light diet - advance as tolerated May shower in (days): 1 Call your doctor if your incision/area has: Continuous Slow Oozing, Sudden Increased Bleeding, Increased Pain/ Swelling, Increased Redness, Foul Smelling Discharge and Swelling at the incision site Call your doctor if you observe: Fever of 101 or Higher Cleanse incision/area with: Soap & Water Additional Dressing/Incision Instructions: Steri-Strips will fall off in 7 to 10 days, if they do not fall off okay to remove after 10 days. Please Follow Up With: Batsheva Winston MD When: Call the office for a follow-up appointment 2 weeks; after 5 PM and on the weekends call [phone] with any concerns. Meaningful Use Info Meaningful Use Diagnoses (Choose all that apply): None applicable Discharge Plan Admission Admit Date/Time: 02/15/21 14:48 Attending Provider: Batsheva Winston Primary Care Provider: Karri Esquivel Instructions Forms: Work / School Excuse Discharge Orders/Prescriptions Prescriptions: New amoxicillin-pot clavulanate [Augmentin] 875-125 mg tablet 1 tab PO BID Qty: 6 RF: 0 oxycodone-acetaminophen 5-325 mg tablet 1 - 2 tab PO Q6H PRN (Reason: pain) 4 Days Qty: 20 RF: 0 Continued atenolol 50 mg tablet 50 mg PO DAILY RF: 0 lisinopril 20 mg tablet 20 mg PO DAILY RF: 0 acetaminophen [Tylenol Arthritis] 650 mg Tablet Extended Release 650 mg PO Q8H PRN (Reason: arthritis pain) RF: 0 Held aspirin [Baby Aspirin] 81 mg Tablet,Chewable 81 mg PO DAILY RF: 0 Referrals / Follow Up: Karri Esquivel MD [Primary Care Provider] - Disposition Disposition (needs filled in before D/C Order can be placed): Home, Self Care
== END 2021-02-16 12:40 | disposition home or self-care (01) | DRG 419 ==
LOC: ED 10:27 → MS2 11:24
PROVIDERS: Admitting Provider Surgery; Emergency Provider Emergency Medicine; PCP Family Medicine; Visit Provider Surgery
PROC: 0FB44ZZ Excision of Gallbladder, Percutaneous Endoscopic Approach (ICD-10-PCS; CPT 47610; principal; 2021-02-14 12:55)
DX: K80.00 Calculus of gallbladder with acute cholecystitis without obstruction (principal); K66.0 Peritoneal adhesions (postprocedural) (postinfection); Z20.822 Contact with and (suspected) exposure to COVID-19; I10 Essential (primary) hypertension; Z79.82 Long term (current) use of aspirin; Z79.899 Other long term (current) drug therapy
CPT/HCPCS: 36415; 76705; 80048; 80053; 80076; 81001; 83605; 83690; 85025; 87426; 88304; 93005; 97802; 99284; J7030; A4216; J2405

== ENCOUNTER 2021-10-26 16:05 | Emergency (ER) | payer OTHER, BC, SELFPAY ==
[2021-10-26 16:05] VITALS: BP 149/75; PULSE 79; RESP 18; TEMP 36.1; O2SAT 99; BMI 40.4
[2021-10-26 16:28] LABS: Absolute Lymphocyte Count 1.91 X10^3/uL (0.83-4.51); Absolute Neutrophil Count 9.9 X10^3/uL (2.0-7.7); Basophil# 0.05 X10^3/uL; Basophil% 0.4 % (0-1); Eosinophils% 0.8 % (0-5); Hemoglobin 13.5 g/dL (12.0-15.0); Lymphocyte # 1.91 X10^3/ul (0.83-4.51); Lymphocyte % 14.5 % (19-41); Mean Corp Hgb Conc 32.9 g/dL (32-36); Mean Corpuscular Hgb 31.8 pg (27.0-32.0); Mean Corpuscular Volume 96.5 fL (81-99); Mean Platelet Vol. 9.2 fl (6.2-12.0); Monocyte# 1.11 X10^3/uL; Monocyte% 8.4 % (0-10); NRBC Flagged by Analyzer 0 % (0-5); Neutrophil # 9.92 X10^3/uL (2.7-7.7); Neutrophil % 75.5 % (47-70); Platelet Count 353 K/mm3 (150-450); RBC Distribution Width CV 13.2 % (11.6-14.6); RBC Distribution Width SD 46.5 fl (35.1-43.9); Red Blood Count 4.25 M/mm3 (4.2-5.4); White Blood Count 13.1 K/mm3 (4.4-11.0)
[2021-10-26 16:41] LABS: Anion Gap 6 (5-15); BUN 10 mg/dL (7-18); BUN/Creat Ratio 11.7 RATIO (10-20); Calcium,Total 9.4 mg/dL (8.5-10.1); Chloride 107 mmol/L (98-107); Creatinine, Serum 0.85 mg/dL (0.55-1.02); EST Glomerular Filtration Rate 73 mL/min (>60); Est Glom Filt Rate - Afr Amer 88 mL/min (>60); Estimated Creatinine Clearance 104.58 ml/min; Glucose 120 mg/dL (74-106); Potassium 4.1 mmol/L (3.5-5.1); Sodium Level 141 mmol/L (136-145)
--- NOTE | 2021-10-26 16:42 | CT_ITS ---
STUDY: CT ABDOMEN AND PELVIS WITH CONTRAST REASON FOR EXAM: Female, 55 years old. Right upper quadrant pain. History of cholecystectomy, February 2021. RADIATION DOSAGE (If Supplied By Facility): CTDIvol = ( 18.58 ) mGy, DLP = ( 1309.39 ) mGycm TECHNIQUE: Transaxial images were obtained from the dome of the diaphragm to the symphysis pubis without oral contrast. IV 100mL Isovue-300 was administered. Sagittal and coronal images were reconstructed. Individualized dose optimization techniques were used for this CT. COMPARISON: Abdominal ultrasound, 02/13/2021 FINDINGS: The visualized lung bases are unremarkable. The visualized portions of the heart are within normal limits. Diffuse fatty infiltration of the mildly enlarged liver. There is focal fatty sparing in the gallbladder fossa. There is question of minimal inflammatory changes in the gallbladder fossa. The gallbladder appears grossly normal. There is no biliary ductal dilatation. Normal spleen. Normal pancreas. Normal bilateral adrenal glands. Normal right kidney. Normal left kidney. Normal visualized ureters. Small hiatal hernia. The stomach is otherwise grossly normal. Normal small intestine. Sigmoid diverticulosis without acute inflammatory change. Minimal wall thickening of the hepatic flexure adjacent to the gallbladder fossa where stranding is noted. The appendix is visualized and appears normal. There is diffuse atherosclerotic calcification of the abdominal aorta, without a demonstrated aneurysm. Normal inferior vena cava. Normal retroperitoneum. Normal urinary bladder. There exophytic calcified fibroids off the anterior aspect of the uterus. No adnexal mass or pelvic lymphadenopathy. No free air or free fluid is seen within the peritoneal cavity. Normal abdominal wall. There are diffuse degenerative changes of the visualized lumbar spine. CT/Abdomen/Pelvis W IV Cont ONLY IMPRESSION: 1. Mild stranding in the region of the gallbladder fossa involving the hepatic flexure. The gallbladder itself appears normal. Question cholecystitis versus focal colitis. 2. Infiltration of the liver. 3. Fibroid uterus. Electronically Signed: Urban Real DO at 18:13 EDT ,
--- NOTE | 2021-10-26 16:43 | EDS_ITS ---
HPI HPI - GI History of Present Illness Chief Complaint: Abd Pain Narrative Narrative: Patient has past surgical history of cholecystectomy 9 months ago. She presents with right upper quadrant abdominal pain since 330 this morning, approximately 13 hours ago. She denies any fevers or chills. No nausea or vomiting. No diarrhea. She thinks she may have overdone it because she is taking care of one of her relatives, and did clean out her car. She had constant pain in her right upper quadrant that is worse with movement. She took Tylenol initially, then a Percocet left over from her surgery. Of note, she states that she has had this right upper quadrant pain twice since her surgery but never followed up with her surgeon regarding it because it resolved after a day. It is a constant pain, alternating between sharp and stabbing and dull and achy. [facility] Medical History (Updated 10/26/21 @ 20:03 by Rahul Muhammad MD) GERD (gastroesophageal reflux disease) Hypertension Morbid obesity Home Medications acetaminophen 650 mg tablet,extended release 650 mg PO Q8H PRN arthritis pain 02/13/21 [History Last Taken Unknown] aspirin 81 mg chewable tablet 81 mg PO DAILY anticoatulant 02/13/21 [History Last Taken 02/13/21] atenolol 50 mg tablet 50 mg PO DAILY b/p 02/13/21 [History Last Taken 02/13/21] lisinopril 20 mg tablet 20 mg PO DAILY b/p 02/13/21 [History Last Taken 02/13/21] amoxicillin 875 mg-potassium clavulanate 125 mg tablet (Augmentin) 1 tab PO BID #6 tabs 02/16/21 [Rx Last Taken Unknown] oxycodone-acetaminophen 5 mg-325 mg tablet 1 - 2 tab PO Q6H PRN pain 4 days #20 tabs 02/16/21 [Rx Last Taken Unknown] ciprofloxacin HCl 500 mg tablet (Cipro) 500 mg PO BID #14 tabs 10/26/21 [Rx Last Taken Unknown] metronidazole 500 mg tablet 500 mg PO TID #21 tabs 10/26/21 [Rx Last Taken Unknown] oxycodone-acetaminophen 5 mg-325 mg tablet (Percocet) 1 tab PO Q6H PRN pain 3 days #12 tabs 10/26/21 [Rx Last Taken Unknown] Allergy/AdvReac Type Severity Reaction Status Date / Time erythromycin base Allergy Nausea/Vom/ Verified 10/26/21 16:07 Diarrhea acetaminophen [From Vicodin] AdvReac Severe Other Verified 10/26/21 16:07 hydrocodone [From Vicodin] AdvReac Severe Other Verified 10/26/21 16:07 Family History (Updated 10/26/21 @ 18:[address] Susi Wynn MD) Mother Hypertension Father Hypertension Surgical History S/P laparoscopic cholecystectomy Social History (Updated 10/26/21 @ 18:[address] Susi Wynn MD) household members: spouse Smoking Status: Never smoker alcohol intake: never substance use type: does not use ROS ROS ED ROS Narrative Constitutional: No fever, no chills. HEENT: No sore throat. No neck pain. No loss of vision. No rhinorrhea. Cardiovascular: No chest pain. No palpitations. No pedal edema. Respiratory: No cough, no shortness of breath. Abdominal: Right upper quadrant abdominal pain. No nausea. No vomiting. Genitourinary: No dysuria. No hematuria. Musculoskeletal: No myalgias. No arthralgias. Neurologic: No headaches. No dizziness. No lightheadedness. Skin: No rash. No change in color. Psychiatric: No depression. No anxiety. EXAM Physical Exam Narrative Exam Narrative: Afebrile. Vital signs noted. HEENT: Normocephalic. Atraumatic. PERRL, EOMI. Neck soft and supple. No point tenderness or step off. Cardiovascular: Regular rate and rhythm. No murmurs, rubs, or gallops appreciated. Respiratory: No tachypnea. Lungs clear to auscultation bilaterally. Gastrointestinal: Abdomen soft, obese, with minimal tenderness to palpation in r ight upper quadrant, with normoactive bowel sounds. No rebound or guarding. No crepitance in the rib area. Neurological: Awake. Alert. Nonfocal, nonlateralizing. Skin: No rash. Normal color. No pallor. Musculoskeletal: No pedal edema. Full range of motion extremities. Const Vital Signs: 10/26/21 16:05 Temperature 96.9 F L Temperature Source Temporal Pulse Rate 79 Respiratory Rate 18 Blood Pressure 149/75 H Blood Pressure Mean 99 Pulse Ox 99 Oxygen Delivery Method Room Air MDM MDM MDM Narrative Medical decision making narrative: Patient is status postcholecystectomy by 9 months. Nursing protocol labs were ordered. She has an elevated white count at 13.1, hemoglobin stable at 13.5. BMP is grossly unremarkable. I will add a lipase and obtain CT imaging. She was administered morphine for analgesia. Patient has a normal lipase, LFTs are grossly unremarkable. CT of the abdomen and pelvis shows mild stranding in the region of the gallbladder fossa involving the hepatic flexure. Question cholecystitis versus focal colitis. I discussed the patient with Dr. Winston. She states that the way she had performed the surgery, although there were too many adhesions of the gallbladder wall, there is no area for it to reaccumulate and she thinks that it may be more of a focal colitis as described and would like it treated as such. She was given her first doses of Cipro and Flagyl here in the emergency department. I will write her a prescription for 3 days worth of Percocet, and for 7 days of Cipro and Flagyl. She will follow-up with general surgery versus GI, versus her primary care provider. Return instructions to the emergency department were reviewed. Upon repeat examination, patient states she is feeling improved. Disposition is discharged home in stable condition. Lab Data Attestation: I reviewed the patient's lab results. Labs: Laboratory Results - last 24 hr 10/26/21 10/26/21 10/26/21 16:15 16:15 16:15 WBC 13.1 H RBC 4.25 Hgb 13.5 Hct 41.0 MCV 96.5 MCH 31.8 MCHC 32.9 RDW Std Deviation 46.5 H RDW Coeff of Sergo 13.2 Plt Count 353 MPV 9.2 Immature Gran % (Auto) 0.400 Neut % (Auto) 75.5 H Lymph % (Auto) 14.5 L [place] % (Auto) 8.4 Eos % (Auto) 0.8 Baso % (Auto) 0.4 Absolute Neuts (auto) 9.9 H Absolute Lymphs (auto) 1.91 Nucleated RBC % 0 Sodium 141 Potassium 4.1 Chloride 107 Carbon Dioxide 28.0 Anion Gap 6 BUN 10 Creatinine 0.85 Estim Creat Clear Calc 104.58 Est GFR (MDRD) Af Amer 88 Est GFR (MDRD) Non-Af 73 BUN/Creatinine Ratio 11.7 Glucose 120 H Calcium 9.4 Total Bilirubin 0.30 Direct Bilirubin 0.10 AST 30 ALT 41 Alkaline Phosphatase 78 Total Protein 7.3 Albumin 3.7 Globulin 3.6 Lipase 165 Radiography Diagnostic Testing: Clinical Impression(s) from Imaging Studies Abdomen/Pelvis CT 10/26/21 16:42 IMPRESSION: 1. Mild stranding in the region of the gallbladder fossa involving the hepatic flexure. The gallbladder itself appears normal. Question cholecystitis versus focal colitis. 2. Infiltration of the liver. 3. Fibroid uterus. Electronically Signed: Urban Real DO at 18:13 EDT Reading Location ID and State: [address] [place] [address] Tel [phone], Service support , Discharge Plan Triage Chief Complaint: Abd Pain ED Provider: Rahul Muhammad Dx/Rx/DC Orders Clinical Impression: Abdominal pain, RUQ, Focal active colitis Instructions: ED Understanding Colitis Prescriptions: New oxycodone-acetaminophen [Percocet] 5-325 mg tablet 1 tab PO Q6H PRN (Reason: pain) 3 Days Qty: 12 0RF ciprofloxacin HCl [Cipro] 500 mg tablet 500 mg PO BID Qty: 14 0RF metronidazole 500 mg tablet 500 mg PO TID Qty: 21 0RF No Action atenolol 50 mg tablet 50 mg PO DAILY lisinopril 20 mg tablet 20 mg PO DAILY acetaminophen [Tylenol Arthritis] 650 mg Tablet Extended Release 650 mg PO Q8H PRN (Reason: arthritis pain) aspirin [Baby Aspirin] 81 mg Tablet,Chewable 81 mg PO DAILY amoxicillin-pot clavulanate [Augmentin] 875-125 mg tablet 1 tab PO BID Qty: 6 0RF oxycodone-acetaminophen 5-325 mg tablet 1 - 2 tab PO Q6H PRN (Reason: pain) 4 Days Qty: 20 0RF Primary Care Provider: Karri Esquivel Referrals: Karri Esquivel MD [Primary Care Provider] - 3-5 Days if not improving Batsheva Winston MD [STAFF PHYSICIAN] - 3-5 Days if not improving Disposition Disposition: Home, Self Care
[2021-10-26] MEDS: 0.9% Normal Saline 1,000 ML 1000 ML IV (17:26)
[2021-10-26] MEDS: Morphine 4 MG/ML Syringe IV (17:26)
[2021-10-26 17:33] LABS: AST(SGOT) 30 U/L (15-37); Alanine Aminotransfer ALT/SGPT 41 U/L (13-56); Albumin, Serum 3.7 g/dL (3.2-5.0); Alkaline Phosphatase 78 U/L (45-117); Globulin 3.6 g/dL (2.2-4.2); Lipase 165 U/L (73-393); Protein, Total 7.3 g/dL (6.4-8.2)
[2021-10-26] MEDS: metroNIDAZOLE 500 MG Tablet PO (20:06)
[2021-10-26] MEDS: Ciprofloxacin 500 MG Tablet PO (20:07)
[2021-10-26 20:52] VITALS: BP 144/71; PULSE 75; RESP 16; O2SAT 99
== END 2021-10-26 20:54 | disposition home or self-care (01) ==
PROVIDERS: Emergency Provider Emergency Medicine; PCP Family Medicine; Visit Provider Emergency Medicine
DX: K52.9 Noninfective gastroenteritis and colitis, unspecified (principal); I10 Essential (primary) hypertension; E66.9 Obesity, unspecified; Z79.01 Long term (current) use of anticoagulants; Z79.899 Other long term (current) drug therapy; Z90.49 Acquired absence of other specified parts of digestive tract
CPT/HCPCS: 74177; 80048; 80076; 83690; 85025; 96361; 96374; 99284; J7030; Q9967; A4216

== ENCOUNTER 2021-11-28 18:39 | Emergency (ER) | payer BC, SELFPAY ==
[2021-11-28 18:40] VITALS: BP 161/72; PULSE 74; RESP 16; TEMP 37.1; O2SAT 98; BMI 40.4
--- NOTE | 2021-11-28 19:28 | ED.VIS.GI ---
HPI HPI - GI History of Present Illness Chief Complaint: Abd Pain Informant: patient Abdominal Pain/Flank Pain Onset: Yesterday Context: Gradual Onset Timing: Continuous Quality: Aching Location: RUQ Worsened by: Nothing Relieved by: - (Heat) Nausea/Vomiting/Emesis GI Symptom: Positive for Nausea; Negative for Vomiting Diarrhea/Melena/Hematochezia GI Symptom: Negative for Diarrhea, Melena or Hematochezia Associated Symptoms Associated Symptoms: Negative for Dysuria, Frequency or Hematuria Narrative Narrative: Presents with abdominal pain that began yesterday. Patient states that began gradually. Patient states it is mainly over the right upper quadrant. Patient describes it as aching. Patient states nothing makes it worse. Patient states that it somewhat better with heat. Patient admits to some mild nausea but denies any vomiting. Patient denies any diarrhea, melena, or hematochezia. Patient denies any dysuria or hematuria. Patient denies any radiation of the pain into her back. PFSH [facility] Medical History GERD (gastroesophageal reflux disease) Hypertension Morbid obesity Home Medications acetaminophen 650 mg tablet,extended release 650 mg PO Q8H PRN arthritis pain 02/13/21 [History Last Taken Unknown] atenolol 50 mg tablet 50 mg PO DAILY b/p 02/13/21 [History Last Taken 02/13/21] lisinopril 20 mg tablet 20 mg PO DAILY b/p 02/13/21 [History Last Taken 02/13/21] oxycodone-acetaminophen 5 mg-325 mg tablet 1 - 2 tab PO Q6H PRN pain 4 days #20 tabs 02/16/21 [Rx Last Taken Unknown] ciprofloxacin HCl 500 mg tablet 500 mg PO BID #20 TABLETS 11/28/21 [Rx Last Taken Unknown] metronidazole 500 mg tablet 500 mg PO Q6H #40 tabs 11/28/21 [Rx Last Taken Unknown] ondansetron 4 mg disintegrating tablet 4 mg PO Q8H PRN PRN Nausea #10 tabs 11/28/21 [Rx Last Taken Unknown] oxycodone-acetaminophen 5 mg-325 mg tablet 1 tab PO Q6H PRN PRN Pain 3 days #12 TABLETS 11/28/21 [Rx Last Taken Unknown] Allergy/AdvReac Type Severity Reaction Status Date / Time erythromycin base Allergy Nausea/Vom/ Verified 11/28/21 18:40 Diarrhea acetaminophen [From Vicodin] AdvReac Severe Other Verified 11/28/21 18:40 hydrocodone [From Vicodin] AdvReac Severe Other Verified 11/28/21 18:40 Family History (Updated 10/26/21 @ 18:[address] Susi Wynn MD) Mother Hypertension Father Hypertension Surgical History S/P laparoscopic cholecystectomy Social History household members: spouse Smoking Status: Never smoker alcohol intake: never substance use type: does not use ROS ROS ED Constitutional Constitutional ED: Denies chills or fever(s) Eyes Eyes: Denies blurry vision or change in vision ENT ENT ED: Denies rhinorrhea or sore throat Cardiovascular Cardiovascular: Denies chest pain or palpitations Respiratory/Chest Respiratory/Chest: Denies cough or dyspnea Gastrointestinal Gastrointestinal: Reports abdominal pain and nausea; Denies diarrhea or vomiting Genitourinary Genitourinary ED: Denies dysuria or hematuria Musculoskeletal Musculoskeletal: Denies back pain or neck pain Integumentary Denies abscess or rash Neurologic Neurologic: Denies headache(s) or weakness Allergic/Immunologic Allergic/Immunologic ED: Denies mouth swelling or urticaria EXAM Physical Exam Const Vital Signs: 11/28/21 18:40 Temperature 98.8 F Temperature Source Temporal Pulse Rate 74 Respiratory Rate 16 Blood Pressure 161/72 H Blood Pressure Mean 101 Pulse Ox 98 Oxygen Delivery Method Room Air Positive well nourished and well developed General Appearance ED: well developed HEENT Reports moist mucous membranes Neck supple and no JVD Resp normal respiratory effort and clear to auscultation bilaterally Cardio regular rate, regular rhythm and no murmurs GI normal to inspection, nondistended, normoactive bowel sounds Palpation: soft and tender RUQ; Negative for guarding or rebound tenderness present Extremity normal to inspection General Extremety ED: Negative for edema or tenderness General Extremity: Negative for edema Neuro oriented x3, CN's II-XII intact bilaterally and no sensory deficits noted Sensorium / Orientation: alert Motor Exam: strength 5/5 throughout Psych mental status grossly normal Skin no rashes or lesions noted MDM MDM MDM Narrative Medical decision making narrative: Patient was given IV fluids, morphine, and Zofran. CBC shows a slight leukocytosis of 11.4. This was improved from previous result. Comprehensive metabolic profile was within normal limits. Lipase was normal. Urinalysis does not show any evidence of urinary tract infection. Patient is feeling somewhat better on reevaluation. Patient was advised that this may be a flareup of her colitis. Patient was given prescriptions for Cipro and Flagyl. Patient was also given prescriptions for Zofran and a short course of Percocet. Patient was instructed to follow-up with her primary care physician in 5 to 7 days. Patient was also instructed to follow-up with her [employer] member as scheduled. Patient understood and was agreeable with the plan. All questions were answered. Lab Data Attestation: I reviewed the patient's lab results. Labs: Laboratory Results - last 24 hr 11/28/21 11/28/21 11/28/21 19:56 19:56 19:58 WBC 11.4 H RBC 4.70 Hgb 14.9 Hct 44.8 MCV 95.3 MCH 31.7 MCHC 33.3 RDW Std Deviation 45.7 H RDW Coeff of Sergo 13.0 Plt Count 337 MPV 9.6 Immature Gran % (Auto) 0.400 Neut % (Auto) 58.1 Lymph % (Auto) 26.9 [place] % (Auto) 12.0 H Eos % (Auto) 2.0 Baso % (Auto) 0.6 Absolute Neuts (auto) 6.6 Absolute Lymphs (auto) 3.06 Nucleated RBC % 0 Sodium 140 Potassium 3.9 Chloride 106 Carbon Dioxide 28.0 Anion Gap 6 BUN 12 Creatinine 0.77 Estim Creat Clear Calc 114.05 Est GFR (MDRD) Af Amer 99 Est GFR (MDRD) Non-Af 82 BUN/Creatinine Ratio 15.5 Glucose 102 Calcium 9.5 Total Bilirubin 0.30 AST 22 ALT 33 Alkaline Phosphatase 84 Total Protein 8.1 Albumin 3.9 Globulin 4.2 Albumin/Globulin Ratio 0.9 Lipase 207 Urine Color Yellow Urine Clarity Clear Urine pH 6.0 Ur Specific [place] 1.020 Urine Protein Negative Urine Glucose (UA) Normal Urine Ketones Negative Urine Occult Blood 10 H Urine Nitrite Negative Urine Bilirubin Negative Urine Urobilinogen Normal Ur Leukocyte Esterase 25 H Urine RBC 0 SEEN Urine WBC 0-5 SEEN Ur Squamous Epith Cells 0-5 SEEN Urine Bacteria 0 SEEN Urine Mucus 0 SEEN Discharge Plan Triage Chief Complaint: Abd Pain ED Provider: Rafy Hernández Dx/Rx/DC Orders Clinical Impression: Acute colitis, Right upper quadrant abdominal pain Instructions: ED Understanding Colitis Prescriptions: New metronidazole [metronidazole] 500 MG tablet 500 mg PO Q6H Qty: 40 0RF ciprofloxacin HCl [ciprofloxacin HCl] 500 MG tablet 500 mg PO BID Qty: 20 0RF oxycodone-acetaminophen [oxycodone-acetaminophen] 1 TABLET tablet 1 tab PO Q6H PRN PRN (Reason: Pain) 3 Days Qty: 12 0RF ondansetron [ondansetron] 4 MG tablet 4 mg PO Q8H PRN PRN (Reason: Nausea) Qty: 10 0RF No Action atenolol 50 mg tablet 50 mg PO DAILY lisinopril 20 mg tablet 20 mg PO DAILY acetaminophen [Tylenol Arthritis] 650 mg Tablet Extended Release 650 mg PO Q8H PRN (Reason: arthritis pain) oxycodone-acetaminophen 5-325 mg tablet 1 - 2 tab PO Q6H PRN (Reason: pain) 4 Days Qty: 20 0RF Primary Care Provider: Karri Esquivel Referrals: Karri Esquivel MD [Primary Care Provider] - 5-7 Days
[2021-11-28] MEDS: Ondansetron 4 MG/2 ML Vial IV ×2 (19:52→21:29)
[2021-11-28] MEDS: Morphine 4 MG/ML Syringe IV (19:52)
[2021-11-28] MEDS: 0.9% Normal Saline 1,000 ML 1000 ML IV (19:53)
[2021-11-28 20:05] LABS: Bacteria 0 SEEN /hpf (None Seen); Mucous, Urine 0 SEEN /hpf (<or=2+); Red Blood Cells-Urine 0 SEEN /hpf (0-5)
[2021-11-28 20:07] LABS: Absolute Lymphocyte Count 3.06 X10^3/uL (0.83-4.51); Absolute Neutrophil Count 6.6 X10^3/uL (2.0-7.7); Basophil# 0.07 X10^3/uL; Basophil% 0.6 % (0-1); Eosinophil# 0.23 X10^3/uL; Hematocrit 44.8 % (37-47); Hemoglobin 14.9 g/dL (12.0-15.0); Lymphocyte # 3.06 X10^3/ul (0.83-4.51); Lymphocyte % 26.9 % (19-41); Mean Corp Hgb Conc 33.3 g/dL (32-36); Mean Corpuscular Hgb 31.7 pg (27.0-32.0); Mean Corpuscular Volume 95.3 fL (81-99); Mean Platelet Vol. 9.6 fl (6.2-12.0); Monocyte# 1.36 X10^3/uL; NRBC Flagged by Analyzer 0 % (0-5); Neutrophil % 58.1 % (47-70); Platelet Count 337 K/mm3 (150-450); RBC Distribution Width SD 45.7 fl (35.1-43.9); White Blood Count 11.4 K/mm3 (4.4-11.0)
[2021-11-28 20:07] LABS: Color, Urine Yellow (Yellow); Glucose, Dipstick Normal (Normal); Ketone-Dipstick Negative (Negative); Leukocyte Esterase-Dipstick 25 /ul (Negative); Nitrite-Dipstick Negative (Negative); Occult Blood-Urine 10 /ul (Negative); Protein-Dipstick Negative (Negative); Urine Bilirubin Dipstick Negative (Negative); Urine Clarity Clear (Clear); Urine Urobilinogen Normal (Normal)
[2021-11-28 20:33] LABS: ALB/GLOB Ratio 0.9 RATIO (0.9-2.4); AST(SGOT) 22 U/L (15-37); Alanine Aminotransfer ALT/SGPT 33 U/L (13-56); Albumin, Serum 3.9 g/dL (3.2-5.0); Alkaline Phosphatase 84 U/L (45-117); Anion Gap 6 (5-15); BUN 12 mg/dL (7-18); BUN/Creat Ratio 15.5 RATIO (10-20); Calcium,Total 9.5 mg/dL (8.5-10.1); Chloride 106 mmol/L (98-107); Creatinine, Serum 0.77 mg/dL (0.55-1.02); EST Glomerular Filtration Rate 82 mL/min (>60); Est Glom Filt Rate - Afr Amer 99 mL/min (>60); Estimated Creatinine Clearance 114.05 ml/min; Globulin 4.2 g/dL (2.2-4.2); Glucose 102 mg/dL (74-106); Lipase 207 U/L (73-393); Potassium 3.9 mmol/L (3.5-5.1); Protein, Total 8.1 g/dL (6.4-8.2); Sodium Level 140 mmol/L (136-145)
[2021-11-28 20:34] LABS: Squamous Epithelial Cells - UA 0-5 SEEN /hpf (5-10); White Blood Cells 0-5 SEEN /hpf (0-5)
[2021-11-28 21:25] VITALS: BP 152/70; PULSE 79; RESP 16; O2SAT 98
[2021-11-28] MEDS: metroNIDAZOLE 500 MG Tablet PO (21:29)
[2021-11-28] MEDS: Ciprofloxacin 500 MG Tablet PO (21:29)
== END 2021-11-28 21:35 | disposition home or self-care (01) ==
LOC: ED 19:34
PROVIDERS: Emergency Provider Emergency Medicine; PCP Family Medicine; Visit Provider Emergency Medicine
DX: K52.9 Noninfective gastroenteritis and colitis, unspecified (principal); E66.01 Morbid (severe) obesity due to excess calories; R10.31 Right lower quadrant pain; I10 Essential (primary) hypertension; M54.9 Dorsalgia, unspecified; R11.0 Nausea; K21.9 Gastro-esophageal reflux disease without esophagitis; Z79.899 Other long term (current) drug therapy
CPT/HCPCS: 80053; 81001; 83690; 85025; 96361; 96374; 96375; 96376; 99284; J2405

== ENCOUNTER 2023-08-21 10:01 | Emergency (ER) | payer OTHER, SELFPAY ==
[2023-08-21 10:01] VITALS: BP 126/52; PULSE 63; RESP 18; TEMP 36.3; O2SAT 98; BMI 42.4
--- NOTE | 2023-08-21 10:15 | EDS_ITS ---
HPI History of Present Illness Chief Complaint: Lower Extremity Injury Narrative Narrative: 57-year-old female presenting of right knee pain. She states this is not a new issue and she has had bad knees for years. She states that she knows she has arthritis in both knees. The right knee she has been taking Tylenol for and using a knee compression wrap 4. She states when she takes Tylenol usually goes away and she can walk on it. She was at work today and was walking and noted th at it was hurting very severely and she had not taken Tylenol. She states he was unable to bear weight and came to the emergency room for evaluation. She does note that it is more swollen and she feels like there is fluid around the outside of it. There is no warmth, redness. Patient denies any injury that she knows of. She states when she is not bearing weight on it she can have full range of motion without any pain. PFSH PFSH Medical History GERD (gastroesophageal reflux disease) Hypertension Morbid obesity Home Medications atenolol 50 mg tablet 50 mg PO DAILY b/p 02/13/21 [History Last Taken 02/13/21] lisinopril 20 mg tablet 20 mg PO DAILY b/p 02/13/21 [History Last Taken 02/13/21] oxycodone 5 mg tablet 5 mg PO Q6H PRN pain 3 days #12 tabs 08/21/23 [Rx Last Taken Unknown] Allergy/AdvReac Type Severity Reaction Status Date / Time erythromycin base Allergy Nausea/Vom/ Verified 08/21/23 10:01 Diarrhea acetaminophen [From Vicodin] AdvReac Severe Other Verified 08/21/23 10:01 hydrocodone [From Vicodin] AdvReac Severe Other Verified 08/21/23 10:01 Family History Mother Hypertension Father Hypertension Surgical History S/P laparoscopic cholecystectomy Social History household members: spouse Smoking Status: Never smoker alcohol intake: never substance use type: does not use ROS ROS ED Constitutional Constitutional ED: Denies chills, fever(s) or sweats Eyes Eyes: Denies blurry vision or change in vision ENT ENT ED: Denies ear pain or sore throat Cardiovascular Cardiovascular: Denies chest pain, palpitations or racing heartbeat Respiratory/Chest Respiratory/Chest: Denies cough, dyspnea or sputum Gastrointestinal Gastrointestinal: Denies abdominal pain, constipation, diarrhea, nausea or vomiting Genitourinary Genitourinary ED: Denies dysuria, hematuria or urinary frequency Musculoskeletal Musculoskeletal: Reports other Details: Right knee pain ; Denies arthralgias, myalgias or neck pain Integumentary Denies abscess, Abrasions or rash Neurologic Neurologic: Denies headache(s), paresthesias or weakness Psychiatric Psychiatric: Denies anxiety, depression, suicidal ideation or suicidal thoughts Endocrine Endocrinology: Denies polydipsia or polyuria EXAM Physical Exam Const Vital Signs: 08/21/23 10:01 08/21/23 12:13 Temperature 97.3 F L 97.3 F L Temperature Source Temporal Pulse Rate 63 72 Respiratory Rate 18 16 Blood Pressure 126/52 H 123/57 H Blood Pressure Mean 76 79 Pulse Ox 98 98 Oxygen Delivery Method Room Air Positive well nourished General Appearance ED: NAD HEENT normocephalic Resp normal respiratory effort Extremity Extremity Narrative: Right knee: Right knee extensor mechanism intact. Patient able to flex and extend her right knee without any difficulty. There is noted swelling over the right knee laterally. Patella nontender. No ligamentous laxity. No redness, warmth. Neuro oriented x3 Sensorium / Orientation: alert Motor Exam: strength 5/5 throughout Skin Lesions: no lesions Rashes: no rashes MDM MDM MDM Narrative Medical decision making narrative: Patient presenting with right knee pain. It only hurts when she is standing and bearing weight. She is able to flex and extend it without any difficulty while laying in the bed. She states Tylenol relieves her pain. I do not believe she has a septic knee joint. She does have some swelling around the knee. I will give her Tylenol as she states this works and she is amenable to this. Will obtain x-rays of the right knee. Right knee x-ray on my interpretation shows no acute fracture or subluxation. There is a very small joint effusion. Patient requested something stronger than Tylenol for pain and was given oxycodone. Discussed her x-ray was normal. She states she is established with Dr. Kev Maria. I recommend she follow-up with him. She declines crutches or walker. Impression 1. Right knee pain 2. Right knee Lab Data Attestation: I reviewed the patient's lab results. Radiography Diagnostic Testing: Clinical Impression(s) from Imaging Studies Knee X-Ray 08/21/23 10:20 IMPRESSION: Tiny joint effusion. Electronically Signed: Eliel Mitchell MD at 10:40 EDT , Discharge Plan Triage Chief Complaint: Lower Extremity Injury ED Provider: Ray Fuller Dx/Rx/DC Orders Instructions: ED Knee Effusion Prescriptions: New oxycodone 5 mg tablet 5 mg PO Q6H PRN (Reason: pain) 3 Days Qty: 12 0RF No Action atenolol 50 mg tablet 50 mg PO DAILY lisinopril 20 mg tablet 20 mg PO DAILY Stand Alone Forms: ED Work / School Excuse Primary Care Provider: Karri Esquivel Referrals: Karri Esquivel MD [Primary Care Provider] - Disposition Disposition: Home, Self Care Discharge Date/Time: 08/21/23 12:20
--- NOTE | 2023-08-21 10:20 | RAD_ITS ---
STUDY: X-RAY - RIGHT KNEE REASON FOR EXAM: Female, 57 years old. Knee pain. TECHNIQUE: 4 view(s) of the knee. COMPARISON: None. FINDINGS: Normal visualized distal femur. Normal visualized proximal tibia and fibula. Normal proximal tibiofibular articulation. Normal medial femorotibial compartment. Normal lateral femorotibial compartment. Normal patellofemoral articulation. Tiny joint effusion. RAD/Knee 4 or More Views IMPRESSION: Tiny joint effusion. Electronically Signed: Eliel Mitchell MD at 10:40 EDT ,
[2023-08-21] MEDS: Acetaminophen 325 MG Tablet 650 MG PO (10:27)
[2023-08-21] MEDS: oxyCODONE 5 MG Tablet PO (11:35)
[2023-08-21 12:13] VITALS: BP 123/57; PULSE 72; RESP 16; TEMP 36.3; O2SAT 98
== END 2023-08-21 12:20 | disposition home or self-care (01) ==
PROVIDERS: Emergency Provider Student in an Organized Health Care Education/Training Program; PCP Family Medicine; Visit Provider Student in an Organized Health Care Education/Training Program
DX: M25.561 Pain in right knee (principal); M25.461 Effusion, right knee; M17.0 Bilateral primary osteoarthritis of knee; I10 Essential (primary) hypertension; K21.9 Gastro-esophageal reflux disease without esophagitis; Z79.899 Other long term (current) drug therapy
CPT/HCPCS: 73564; 99283